=== PATIENT | female | born 2000 ===

== ENCOUNTER 2022-01-13 12:08 | Observation (INO) | payer SELFPAY ==
[~2022-01-13] VITALS: Ht 157.5 cm; Wt 87.5 kg
[2022-01-13] MEDS ORDERED: LACTATED RINGER'S 1,000 ML IV ONE (13:30)
[2022-01-13] MEDS ORDERED: TERBUTALINE SULFATE 5 MG TAB PO PRN (13:30)
[2022-01-13 13:31] LABS: Urine Bacteria FEW /hpf (None Seen); Urine Blood Negative /uL (Negative); Urine Mucus FEW (None Seen); Urine Specific Gravity 1.023 (1.001-1.035); Urine WBC 12 /hpf (0 - 5)
[2022-01-13 13:33] LABS: Amphetamine Screen, Urine NEGATIVE (NEGATIVE); Barbiturate Scree,Urine NEGATIVE (NEGATIVE); Benzodiazephine Screen, Urine NEGATIVE (NEGATIVE); Cannabinoid Screen, Urine NEGATIVE (NEGATIVE); Cocaine Screen, Urine NEGATIVE (NEGATIVE); Opiate Scree,Urine NEGATIVE (NEGATIVE); Phencyclidine Screen, Urine NEGATIVE (NEGATIVE)
[2022-01-13] MEDS: TERBUTALINE SULFATE 1 MG/ML 1ML VIAL SC SCH ×2 (14:25→14:46)
== END 2022-01-13 15:46 | disposition home or self-care (01) ==
LOC: LDRP 12:08
PROVIDERS: ADMIT Obstetrics & Gynecology; ATTEND Obstetrics & Gynecology
DX: O26.893 Other specified pregnancy related conditions, third trimester (principal); R10.9 Unspecified abdominal pain; O99.891 Other specified diseases and conditions complicating pregnancy; M54.9 Dorsalgia, unspecified; Z3A.32 32 weeks gestation of pregnancy
CPT/HCPCS: 59025; 76805; 76817; 80307; 81001; 81002; 94760; 96360; 96372; G0378; J3105